=== PATIENT | male | born 1975 | race African-American/Black ===

== ENCOUNTER 2021-01-02 15:56 | Emergency (ER) | payer MEDICAID ==
[~2021-01-02] VITALS: Ht 162.6 cm; Wt 63.0 kg
[2021-01-02 16:58] VITALS: BP 136/91
== END 2021-01-02 17:01 | disposition home or self-care (01) ==
LOC: ER 15:56
DX: Z48.02 Encounter for removal of sutures (principal)
CPT/HCPCS: 99281